=== PATIENT | female | born 1965 | race Caucasian/White ===

== ENCOUNTER 2017-04-05 07:30 | Day surgery (SDC) | payer OTHER ==
[2017-04-01 10:26] LABS: BASOPHILS 0.9 %; BASOPHILS ABSOLUTE 0.06 10/3/uL (0.0-0.16); EOSINOPHILS 2.6 %; EOSINOPHILS ABSOLUTE 0.17 10/3/uL (0.0-0.53); HEMATOCRIT 38.9 % (36.0-48.0); HEMOGLOBIN 12.9 g/dL (12.0-16.0); IMMATURE GRANULOCYTES 0.3 %; IMMATURE GRANULOCYTES ABSOLUTE 0.02 10/3/uL (0.0-0.11); LYMPHOCYTES 19.6 %; LYMPHOCYTES ABSOLUTE 1.28 10/3/uL (0.67-4.30); MEAN CORPUS HGB CONC 33.2 g/dL (32.0-36.0); MEAN CORPUSCULAR HEMOGLOB 28.3 pg (26.0-34.0); MEAN CORPUSCULAR VOLUME 85.3 fL (80-100); MEAN PLATELET VOLUME 11.5 fL (9.2-13.0); MONOCYTES ABSOLUTE 0.52 10/3/uL (0.21-1.20); NEUTROPHILS 68.6 %; NEUTROPHILS ABSOLUTE 4.47 10/3/uL (2.02-8.40); PLATELET COUNT 251 10/3/uL (150-400); RBC DISTRIBUTION WIDTH 14.2 % (12.0-16.0); RED CELL COUNT 4.56 10/6/uL (4.0-5.6); WHITE BLOOD CELLS 6.5 10/3/uL (4.5-10.5)
[2017-04-01 10:27] LABS: MANUAL DIFF NO %
[2017-04-01 10:46] LABS: A/G RATIO 1.1 (0.7-1.9); ALBUMIN 3.6 G/DL (3.5-5.0); ALKALINE PHOSPHATASE 87 U/L (45-117); BUN (BLOOD UREA NITROGEN) 12 MG/DL (6-23); CHLORIDE, SERUM 104 MMOL/L (96-112); CO2 (CARBON DIOXIDE) 31 MMOL/L (24-34); CREATININE 0.82 MG/DL (0.55-1.02); GFR AFRICAN AMERICAN 95 ML/MIN (>=60); GFR NON AFRICAN AMERICAN 82 ML/MIN (>=60); GLOBULIN 3.4 G/DL (2.5-4.1); GLUCOSE, SERUM 99 MG/DL (60-99); POTASSIUM, SERUM 4.4 MMOL/L (3.5-5.3); SGOT(AST) 27 U/L (5-40); SGPT(ALT) 40 U/L (5-65); SODIUM, SERUM 139 MMOL/L (135-148); TOTAL BILIRUBIN 0.6 MG/DL (0-1.2)
[~2017-04-05] VITALS: Ht 162.6 cm; Wt 116.8 kg
--- NOTE | ~2017-04-05 | OP ---
Record Of Operation [facility] [address] [place]. [address] NAME: ELAINE CASTILLO : 63 STATUS : ADM IN PAT#: [id number] AGE: 52 ADM/REG DATE : 04/05/17 MR#: [id number] REPORT SERV DATE: 04/05/17 DICTATED BY: ADALGISA DONIS III DATE: 04/05/17 REPORT STATUS : Draft TRANSCRIBED BY: LAI DATE: 04/05/17 DATE OF PROCEDURE: 04/05/2017 This patient was scheduled for elective surgery today. On presenting to the preoperative area, the patient was noted to have several cutaneous ulcers over her abdominal wall, directly over her previous incision, and directly over her hernia. On exam, she has at least three separate areas of skin breakdown. These are open and do not appear to be acutely infected, but are clearly open wounds. I have explained to the patient that because of these open wounds, we will need to delay her surgery until these have healed. These are directly over the incision, which will need to be made for repair of her hernia. I have recommended that she apply Neosporin or similar ointment to the wounds and a dry dressing with daily dressing changes. I have asked her to return office in two weeks for followup to reexamine this area. Once these lesions have healed, we will reschedule her surgery. This plan was explained to the patient. Her questions were answered. She understands, and agrees to this plan. JOSSUE/LAI Adalgisa Donis III, M.D. / [id number] CC: Adryan Ramírez III, M.D.
[~2017-04-05 07:30] MED LIST: ALEVE220 MG PO; ALLEGRA PO; ALLEGRA180 PO; CHERATUSSIN PO; CIP5 PO; CO Q-10100 MG PO; DURICEF PO; FLEX PO; GLUCPH PO; HCTZ12.5 PO; LEVAQUIN750 MG PO; METHOC750B PO; MICROZIDE PO; NEXIUM40 PO; NORCO1 TA2 PO; OXYCOD PO; PCET PO; PERCOCET1 TA2 PO; PR25 PO; PRAVACHOL40 MG PO; PREV30 PO; PROZAC40 MG PO; RANITIDINE300 MG PO; REG PO; TESSALON200 MG PO; ULTRAM50 PO; VITE PO; X25 PO; ZANTAC300 MG PO; ZOFRAN ODT4 MG PO; ZOFRAN4 PO
== END 2017-04-05 10:00 | disposition home or self-care (01) ==
LOC: SDC 07:30 → EDSTATUS 07:45 → SDC/OF 09:12 → UNDOADMIN 09:12 → SDC 10:00
PROVIDERS: Surgery
DX: K43.2 Incisional hernia without obstruction or gangrene (principal); Z53.09 Procedure and treatment not carried out because of other contraindication; L98.491 Non-pressure chronic ulcer of skin of other sites limited to breakdown of skin
CPT/HCPCS: 71020; 80053; 85025; 87641; 93005